=== PATIENT | female | born 1960 | race Caucasian/White ===

== ENCOUNTER 2021-11-23 17:59 | Emergency (ER) | payer MEDICARE ==
[~2021-11-23] VITALS: Ht 172.7 cm; Wt 81.6 kg
[2021-11-23] MEDS ORDERED: THIAMINE HCL INJ 100 MG/ML 2ML VIAL IV ONE (18:15)
[2021-11-23] MEDS ORDERED: LACTATED RINGER'S 1,000 ML INJ ONE (18:15)
[2021-11-23] MEDS ORDERED: LEVETIRACETAM 500MG/5ML VIAL 2,000 MG in SODIUM CHLORIDE 0.9% 150 ML IV ONE (18:15)
[2021-11-23] MEDS ORDERED: LEVETIRACETAM 500 MG/5 ML VIAL IV ONE (18:24)
[2021-11-23] MEDS ORDERED: THIAMINE HCL INJ 100 MG/ML 2ML VIAL ONE (18:25)
[2021-11-23] MEDS ORDERED: SODIUM CHLORIDE 0.9% 1000ML 1,000 ML ONE (18:25)
[2021-11-23] MEDS: MIDAZOLAM HCL 2 MG/2 ML VIAL IV STA ×2 (18:35→19:14)
[2021-11-23 18:48] LABS: CLARITY,URINE SL CLOUDY (CLEAR); COLOR,URINE YELLOW (YELLOW); KETONES,URINE NEGATIVE (NEGATIVE); LEUKOCYTE ESTERASE ,URINE NEGATIVE (NEGATIVE); NITRITE,URINE NEGATIVE (NEGATIVE); PROTEIN,URINE DIPSTICK 2+ (NEGATIVE)
[2021-11-23 18:49] LABS: AMPHETAMINES SCREEN,URINE NEGATIVE (NEGATIVE); BENZODIAZEPINES SCREEN,URINE NEGATIVE (NEGATIVE); PHENCYCLIDINE SCREEN,URINE NEGATIVE (NEGATIVE); URINE UROBILINOGEN 0.2 mg/dL (0.2 - 1)
[2021-11-23 18:57] LABS: BACTERIA,URINE RARE /HPF; EPITHELIAL CELLS,URINE RARE /LPF; RBC,URINE 0-5 /HPF (0-5); WBC,URINE (MAN) 0-5 /HPF (0-5)
[2021-11-23] MEDS ORDERED: NICARDIPINE 20MG/200ML PREMIX 200 ML IV SCH (19:00)
[2021-11-23 19:03] LABS: BASOPHILS % 0.2 % (0.0-1.0); EOSINOPHILS % 0.2 % (0.0-6.0); HEMATOCRIT 48.8 % (34.2-44.1); HEMOGLOBIN 15.8 g/dL (12.0-16.0); LYMPHOCYTES % 7.2 % (18.0-39.1); MEAN CORPUSCULAR HEMOGLOBIN 34.3 pg (28-32); MEAN CORPUSCULAR HGB CONC 32.4 g/dL (31-35); MEAN CORPUSCULAR VOLUME 106.1 fL (81-99); MONOCYTES # (AUTO) 0.7 (0.2-0.8); MONOCYTES % 5.2 % (4.4-11.3); NEUTROPHILS # (AUTO) 11.6 (2.1-6.9); NEUTROPHILS % 86.8 % (38.7-80.0); PLATELET COUNT 206 x10e3/uL (140-360); RED CELL DISTRIBUTION WIDTH 18.2 % (11.7-14.4)
[2021-11-23 19:11] LABS: INR 1.15; PROTHROMBIN TIME 15.7 seconds (11.9-14.5)
[2021-11-23] MEDS ORDERED: LEVETIRACETAM 500MG/5ML VIAL 2,000 MG in SODIUM CHLORIDE 0.9% 100 ML IV ONE (19:15)
[2021-11-23 19:20] LABS: ANION GAP 24.7 mmol/L (8-16); CALCIUM 7.9 mg/dL (8.4-10.2); CREATININE, SERUM 0.99 mg/dL (0.57-1.11); POTASSIUM 3.7 mmol/L (3.5-5.1)
[2021-11-23 19:30] LABS: SALICYLATE < 5.0 mg/dL (0-30)
[2021-11-23 19:55] VITALS: BP 102/61
[2021-11-23] MEDS ORDERED: ONDANSETRON HCL INJ 2MG/ML 2ML 2 MG/ML VIAL ONE (21:09)
== END 2021-11-23 21:07 | disposition short-term general hospital (02) ==
LOC: ER 18:07
DX: I60.2 Nontraumatic subarachnoid hemorrhage from anterior communicating artery (principal); R56.9 Unspecified convulsions; F10.10 Alcohol abuse, uncomplicated; Y90.0 Blood alcohol level of less than 20 mg/100 ml; Z20.822 Contact with and (suspected) exposure to COVID-19
CPT/HCPCS: 0223U; 36415; 70450; 80053; 80307; 80320; 80329 ×2; 81001; 84484; 85025; 85610; 93005; 99284; J1953; J2405; J3411; J7030; J7050